=== PATIENT | female | born 1990 | race Hispanic/Latino ===

== ENCOUNTER 2018-03-13 12:03 | Emergency (ER) | payer OTHER ==
[~2018-03-13] VITALS: Ht 167.6 cm; Wt 52.2 kg
--- NOTE | 2018-03-13 12:55 | ED GI/GU/ABDOMINAL COMPLAINT ---
History of Present Illness General Chief Complaint: Abdominal Pain/Flank Pain Stated Complaint: ABD PAIN AND BILAT FLANK PAIN Source: patient Exam Limitations: no limitations Vital Signs & Intake/Output Vital Signs & Intake/Output Vital Signs Date Time Temp Pulse Resp B/P B/P Pulse O2 O2 Flow FiO2 Mean Ox Delivery Rate 03/13 1309 97 Room Air Room Air 03/13 1208 98.4 82 16 120/84 99 Room Air Allergies Coded Allergies: No Known Allergies (12/13/17) Reconcile Medications Meloxicam (Mobic) 7.5 MG TABLET 1 TAB PO DAILY FLANK PAIN Triage Note: PT STATES THAT SHE HAS A HISTORY OF KIDNEY STONES AND THAT SHE HAS BEEN HAVING BILATERAL FLANK PAIN ON AND OFF FOR ABOUT 1 WEEK, DENIES BLOOD IN HER URINE. PT IS PAIN FREE AT THIS TIME . SENT BY PMD DUE TO PT WAS JUST TREATED FOR UTI, CONCERNED ABOUT STONES OR PYLO Triage Nurses Notes Reviewed? yes ? N Is pt currently ? No HPI: Patient presents for evaluation of her bilateral sharp stabbing flank pain that has been intermittent since onset. Patient is unable to say when symptoms began because of repeated/chronic urinary tract infections over the past few months. Patient states her last urinary tract infection ended about 2 weeks ago but since then she has felt abdominal bloating and a gassy feeling. The flank pains are described as 8 out of 10 in intensity and are associated with chills. Patient was evaluated by her primary care doctor who is requesting a CAT scan. Past History Travel History Traveled to [place] past 21 day No Medical History Any Pertinent Medical History? 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 No Review of Systems Review of Systems Constitutional: Reports: no symptoms. EENTM: Reports: no symptoms. Respiratory: Reports: no symptoms. Cardiovascular: Reports: no symptoms. GI: Reports: see HPI. Genitourinary: Reports: no symptoms. Musculoskeletal: Reports: see HPI. Skin: Reports: no symptoms. Neurological/Psychological: Reports: no symptoms. Hematologic/Endocrine: Reports: no symptoms. Immunologic/Allergic: Reports: no symptoms. All Other Systems: Reviewed and Negative Physical Exam Physical Exam Gastrointestinal: SEE BELOW Comments: Gen.: Well-nourished, well-developed, no acute respiratory distress. Head: Normocephalic, atraumatic. Eyes: Normal inspection bilaterally Ears: Normal inspection bilaterally Nose: Normal inspection Throat/mouth : Moist mucosa Neck: Supple, full range of motion, no goiter Heart: Regular rate and rhythm, no murmurs rubs or gallops Lungs: Clear to auscultation bilaterally with normal air entry Chest: Nontender Back: Normal range of motion, no CVAT Abdomen: Soft, epigastric and right lower quadrant abdominal tenderness without rebound or guarding, mildly distended, normal bowel sounds Extremities: Normal range of motion grossly, equal radial pulses, no cyanosis clubbing or edema Neurologic: Cranial nerves grossly intact, speech is clear Skin: warm and dry Psychiatric: Calm, cooperative, no apparent delusions or hallucinations Core Measures ACS in differential dx? No Sepsis Present: No Sepsis Focused Exam Completed? No Progress Differential Diagnosis: bowel obstruction, diverticulitis, gastritis, hepatitis, hernia, inflamm bowel dis, kidney stone, pancreatitis, PUD/GERD Plan of Care: Orders Procedure Date/time Status Add-on Test (ER Only) 03/13 1254 Active CULTURE,URINE 03/13 1215 Active URINE 03/13 1208 Complete URINALYSIS 03/13 1208 Complete COMPREHENSIVE METABOLIC PANEL 03/13 1208 Complete CBC WITHOUT DIFFERENTIAL 03/13 1208 Complete Laboratory Tests 03/13/18 1309: Anion Gap 8, Estimated GFR 22 L, BUN/Creatinine Ratio 12.3, Glucose 88, Calcium 9.2, Total Bilirubin 0.3, AST 12 L, ALT 16, Alkaline Phosphatase 51, Total Protein 6.8, Albumin 4.1, Globulin 2.7, Albumin/Globulin Ratio 1.5, CBC w Diff NO MAN DIFF REQ, RBC 3.16 L, MCV 92.0, MCH 31.4 H, MCHC 34.1, RDW 13.7, MPV 8.2, Gran % 57.5, Lymphocytes % 29.4, Monocytes % 9.1, Eosinophils % 3.4, Basophils % 0.6, Absolute Granulocytes 3.0, Absolute Lymphocytes 1.6, Absolute Monocytes 0.5, Absolute Eosinophils 0.2, Absolute Basophils 0 03/13/18 1215: Urine Color YEL, Urine Clarity CLEAR, Urine pH 6.0, Ur Specific [place] 1.015, Urine Protein 100 H, Urine Ketones NEG, Urine Nitrite NEG, Urine Bilirubin NEG, Urine Urobilinogen 0.2, Ur Leukocyte Esterase NEG, Ur Microscopic SEDIMENT EXAMINED, Urine RBC RARE, Urine WBC RARE, Ur Epithelial Cells MOD H, Urine Bacteria FEW H, Micro UA Comment BUDDING YEAST H, Urine Hemoglobin NEG, Urine Glucose NEG, Urine Test NEGATIVE Microbiology 03/13 1215 URINE ROUT: Urine Culture - RECD Diagnostic Imaging: Discussed w/RAD: CT Scan. Radiology Impression: PATIENT: CHRYSTAL ARIAS PRESENT AGE: 28 PATIENT ACCOUNT NO: [id number] : 88 LOCATION: [facility] ORDERING PHYSICIAN: Dong Green MD SERVICE DATE: 03/13/18 EXAM TYPE: CAT - CT ABD & PELVIS W/O IV CONTRAS EXAMINATION: CT ABDOMEN AND PELVIS WITHOUT CONTRAST CLINICAL INFORMATION: Bilateral flank and abdominal pain. History of stones. COMPARISON: Renal ultrasound from 01/02/2018. TECHNIQUE: Multidetector volumetric imaging was performed from the superior aspect of the liver through the pubic symphysis. Sagittal and coronal reformatted images were obtained on the technologist's workstation. DLP: 258 mGy-cm FINDINGS: LUNG BASES: Unremarkable. No basilar consolidation or pleural effusion. LIVER, GALLBLADDER, AND BILIARY TREE: The liver has normal size, shape, and attenuation. No focal hepatic lesion. The gallbladder is underdistended and its wall is approximately 0.5 cm thick. The thickness of the wall is probably due to the lack of distention rather than diffuse adenomyomatosis. No radiopaque calculi or pericholecystic fluid. No intrahepatic or extrahepatic bile duct dilatation. PANCREAS: Unremarkable. SPLEEN: Unremarkable. ADRENAL GLANDS: Unremarkable. RIGHT KIDNEY AND URETER: The renal pelvis is mildly dilated (as observed on ). 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 There are a few foci of cortical calcification of the kidney. Also, there is a linear calcification measuring 0.5 cm AP in the lower pole; this probably represents calcification at the corticomedullary junction rather than nephrolithiasis. The right ureter is unremarkable. No perinephric edema or perinephric fluid collection. LEFT KIDNEY AND URETER: The left kidney has lobulated contour. 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 Scattered cortical calcifications are seen. No convincing evidence for nephrolithiasis. No hydroureteronephrosis. No perinephric edema or perinephric fluid collection. BLADDER: Unremarkable. BOWEL AND PERITONEUM: The small and large bowel are normal in caliber. The appendix is normal. No evidence of acute inflammation or obstruction along the gastrointestinal tract. No ascites or pneumoperitoneum. ABDOMINAL WALL: There is a small, 1 cm wide fat-containing umbilical hernia. LYMPH NODES: No pathologic sized lymph nodes in the abdomen or pelvis. No inguinal lymphadenopathy. VASCULAR: Unremarkable. PELVIC: Unremarkable. MUSCULOSKELETAL: Unremarkable. IMPRESSION: - No acute abnormalities in the abdomen or pelvis. - Bilateral renal cortical thinning/scarring with scattered renal cortical calcifications. 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 Chronic, mild hydronephrosis of the right kidney. - Small fat-containing umbilical hernia. DICTATED BY: Arturo Mesa MD DATE/TIME DICTATED:03/13/181430 CAPPER MACHINE OPERATOR:DAIANA DATE/ TIME TRANSCRIBED:03/13/181430 CONFIDENTIAL, DO NOT COPY WITHOUT APPROPRIATE AUTHORIZATION. <Electronically signed in Other Vendor System> SIGNED BY: Arturo Mesa MD 03/13/18 1454 Initial ED EKG: none Comments: 03/13/2018 3:44:34 PM I have updated days he and her family on test results. The cause of her pain is unclear at this point. I've asked that she follow up with her primary care physician for reevaluation. Departure Departure Disposition: HOME OR SELF CARE Condition: Stable Clinical Impression Primary Impression: Bilateral flank pain Secondary Impressions: Anemia Qualifiers: Anemia type: unspecified type Qualified Code: D64.9 - Anemia, unspecified Renal insufficiency Referrals: Jane Lara MD (PCP/Family) Additional Instructions: Follow-up with your primary care physician this week for reevaluation. Mobic as needed for pain. Return if any concerns or sudden worsening. Please note that there might be incidental findings in your evaluation that are unrelated to the current emergency department visit. Please notify your primary care doctor about this emergency department visit in order to obtain and review all of the testing performed so that these incidental findings can be monitored as needed. If you had an x-ray performed, please understand that some fractures or other findings may not be seen on the initial set of x-rays. If your symptoms persist you might need a repeat set of x-rays to check for such a fracture. If you had a laceration evaluated, please understand that foreign bodies such as glass or wood may not be visible to the naked eye or on plain x-rays. If the wound becomes red, swollen, increasingly more painful or if there is any drainage from the wound, please have it reevaluated by a physician for the possibility of a retained foreign body. If you're unable to follow up as outlined in the discharge instructions please return to the emergency department. Thank you for choosing the [facility] Emergency Department for your care. It was a pleasure to serve you today. Dong Green M.D. [facility] Departure Forms: Customer Survey General Discharge Information Prescriptions: Current Visit Scripts Meloxicam (Mobic) 1 TAB PO DAILY #10 TAB
[2018-03-13 13:27] LABS: ABSOLUTE BASOPHIL COUNT 0 /CUMM (0.0-0.2); ABSOLUTE EOSINOPHIL COUNT 0.2 /CUMM (0.0-0.7); ABSOLUTE LYMPH COUNT 1.6 /CUMM (1.2-3.4); ABSOLUTE MONOCYTE COUNT 0.5 /CUMM (0.10-0.60); BASOPHIL % 0.6 % (0.0-2.0); EOSINOPHIL % 3.4 % (0-5); GRANULOCYTE % 57.5 % (42.2-75.2); HEMATOCRIT 29.1 % (37-47); MEAN CORPUSCULAR HGB 31.4 PG (27.0-31.0); MEAN CORPUSCULAR HGB CONC 34.1 G/DL (33.0-37.0); MEAN PLATELET VOLUME 8.2 FL (7.4-10.4); PLATELET COUNT 231 /CUMM (130-400); RBC DISTRIBUTION WIDTH 13.7 % (11.5-14.5); RED BLOOD CELL CT 3.16 /CUMM (4.20-5.40); WHITE BLOOD CELL COUNT 5.3 /CUMM (4.8-10.8)
--- NOTE | 2018-03-13 14:54 | CT SCAN REPORT ---
EXAMINATION: CT ABDOMEN AND PELVIS WITHOUT CONTRAST CLINICAL INFORMATION: Bilateral flank and abdominal pain. History of stones. COMPARISON: Renal ultrasound from 01/02/2018. TECHNIQUE: Multidetector volumetric imaging was performed from the superior aspect of the liver through the pubic symphysis. Sagittal and coronal reformatted images were obtained on the technologist's workstation. DLP: 258 mGy-cm FINDINGS: LUNG BASES: Unremarkable. No basilar consolidation or pleural effusion. LIVER, GALLBLADDER, AND BILIARY TREE: The liver has normal size, shape, and attenuation. No focal hepatic lesion. The gallbladder is underdistended and its wall is approximately 0.5 cm thick. The thickness of the wall is probably due to the lack of distention rather than diffuse adenomyomatosis. No radiopaque calculi or pericholecystic fluid. No intrahepatic or extrahepatic bile duct dilatation. PANCREAS: Unremarkable. SPLEEN: Unremarkable. ADRENAL GLANDS: Unremarkable. RIGHT KIDNEY AND URETER: The renal pelvis is mildly dilated (as observed on 01/02/2018). 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 There are a few foci of cortical calcification of the kidney. Also, there is a linear calcification measuring 0.5 cm AP in the lower pole; this probably represents calcification at the corticomedullary junction rather than nephrolithiasis. The right ureter is unremarkable. No perinephric edema or perinephric fluid collection. LEFT KIDNEY AND URETER: The left kidney has lobulated contour. 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 Scattered cortical calcifications are seen. No convincing evidence for nephrolithiasis. No hydroureteronephrosis. No perinephric edema or perinephric fluid collection. BLADDER: Unremarkable. BOWEL AND PERITONEUM: The small and large bowel are normal in caliber. The appendix is normal. No evidence of acute inflammation or obstruction along the gastrointestinal tract. No ascites or pneumoperitoneum. ABDOMINAL WALL: There is a small, 1 cm wide fat-containing umbilical hernia. LYMPH NODES: No pathologic sized lymph nodes in the abdomen or pelvis. No inguinal lymphadenopathy. VASCULAR: Unremarkable. PELVIC: Unremarkable. MUSCULOSKELETAL: Unremarkable. IMPRESSION: - No acute abnormalities in the abdomen or pelvis. - Bilateral renal cortical thinning/scarring with scattered renal cortical calcifications. 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 Chronic, mild hydronephrosis of the right kidney. - Small fat-containing umbilical hernia.
[2018-03-13] MEDS ORDERED: MOBIC7.5 M1 PO (15:46)
[2018-03-13 16:27] VITALS: BP 100/60
== END 2018-03-13 16:31 ==
LOC: ERH 12:03
PROVIDERS: Physician Assistant
DX: R10.9 Unspecified abdominal pain (principal); D64.9 Anemia, unspecified; N28.9 Disorder of kidney and ureter, unspecified
CPT/HCPCS: 74176; 81001; 81025; 87086; 87147